=== PATIENT | male | born 1965 | race Caucasian/White ===

== ENCOUNTER 2020-09-20 09:39 | Emergency (ER) | payer OTHER ==
[~2020-09-20 09:39] MED LIST: BENTYL10 MG PO; LEVAQUIN750 MG PO; METRONIDAZOLE500 MG PO; NORCO 5-325 TA1 EACH PO; ONDANSETRON ODT4 MG SL
[2020-09-20] MEDS ORDERED: PREDNISONE 20MG20 MG PO (13:10)
== END 2020-09-20 19:52 | disposition home or self-care (01) ==
LOC: FER 09:39
DX: R20.2 Paresthesia of skin (principal)
CPT/HCPCS: 70450; 70551; 72125

== ENCOUNTER 2021-04-12 14:02 | Emergency (ER) | payer OTHER ==
[~2021-04-12 14:02] MED LIST changes: +PREDNISONE 20MG20 MG PO
[2021-04-12 15:45] LABS: BILIRUBIN NEGATIVE (NEGATIVE); BLOOD 2+ Ery/uL (NEGATIVE); CLARITY CLEAR (CLEAR); COLOR YELLOW (YELLOW); GLUCOSE (U) 3+ mg/dL (NORMAL); LEUKOCYTES NEGATIVE Leu/uL (NEGATIVE); NITRITE NEGATIVE (NEGATIVE); PROTEIN NEGATIVE (NEGATIVE); SPECIFIC GRAVITY 1.025 (1.001-1.030); UROBILINOGEN 0.2 mg/dL (0.2-1.0)
[2021-04-12 15:52] LABS: URINARY RBC TNTC; URINARY WBC RARE
[2021-04-12 15:53] LABS: SQUAMOUS EPITHELIAL CELLS RARE
[2021-04-12 17:07] LABS: HCT 51.5 % (42.0-52.0); HGB 16.4 g/dl (13.2-18.0); LYMPHOCYTE 20.2 % (15-48); MCH 25.7 pg (25.0-31.0); MCHC 31.8 g/dL (32.0-36.0); MCV 80.8 fL (78.0-100.0); MONOCYTE 5.5 % (0-12); MPV 8.9 fL (6.0-9.5); NEUTROPHIL 69.3 % (41-80); NRBC 0; PLT 311 K/uL (150-400); RBC 6.37 M/uL (4.70-6.00); RDW 14.9 % (11.5-14.0); WBC 13.3 K/uL (4.0-10.5)
[2021-04-12] MEDS ORDERED: NORCO 5-325 TA1 EACH PO ×2 (18:19→18:35)
[2021-04-13 07:01] LABS: ALBUMIN 3.7 g/dL (3.4-5.0); BILIRUBIN - TOTAL 0.3 mg/dL (0.2-1.0); BUN/CREAT RATIO (CALC) 16.2 RATIO; CREATININE 1.17 mg/dL (0.67-1.17); GLOBULIN (CALCULATION) 4.3 g/dL; POTASSIUM 4.3 mmol/L (3.5-5.1)
== END 2021-04-12 18:43 | disposition home or self-care (01) ==
LOC: FER 14:02
PROVIDERS: Physician Assistant
DX: N20.0 Calculus of kidney (principal); E11.9 Type 2 diabetes mellitus without complications; Z79.84 Long term (current) use of oral hypoglycemic drugs
CPT/HCPCS: 36415; 80053; 81001; 85025; J1170; J2405; J7030

== ENCOUNTER 2021-08-03 12:09 | Emergency (ER) | payer OTHER ==
[2021-08-03 12:39] LABS: BASOPHIL 1.7 % (0-2); EOSINOPHIL 2.8 % (0-5); HCT 51.6 % (42.0-52.0); HGB 16.9 g/dl (13.2-18.0); LYMPHOCYTE 19.3 % (15-48); MCHC 32.8 g/dL (32.0-36.0); MCV 79.4 fL (78.0-100.0); MONOCYTE 5.7 % (0-12); MPV 8.9 fL (6.0-9.5); NEUTROPHIL 69.2 % (41-80); NRBC 0; PLT 333 K/uL (150-400); RDW 14.4 % (11.5-14.0); WBC 9.4 K/uL (4.0-10.5)
[2021-08-03 12:44] LABS: INR 1.53 (0.9-1.2); PROTHROMBIN TIME 17.7 SECONDS (11.8-13.4); PTT 29.9 SECONDS (24.4-34.7)
[2021-08-03 12:45] LABS: D-DIMER < 0.27 ug/mLFEU (0.00-0.41)
[2021-08-03 12:56] LABS: ALBUMIN 3.7 g/dL (3.4-5.0); BILIRUBIN - TOTAL 0.5 mg/dL (0.2-1.0); BUN/CREAT RATIO (CALC) 15.9 RATIO; CREATININE 1.13 mg/dL (0.67-1.17); GLOBULIN (CALCULATION) 4.3 g/dL; POTASSIUM 4.3 mmol/L (3.5-5.1)
== END 2021-08-03 15:13 | disposition home or self-care (01) ==
LOC: FER 12:09
PROVIDERS: Emergency Medicine
DX: R07.89 Other chest pain (principal); E11.40 Type 2 diabetes mellitus with diabetic neuropathy, unspecified; I10 Essential (primary) hypertension; Z79.84 Long term (current) use of oral hypoglycemic drugs; Z79.01 Long term (current) use of anticoagulants
CPT/HCPCS: 36415; 71045; 80053; 82553; 84484; 85025; 85379; 85610; 85730; 93005